=== PATIENT | male | born 1950 | race Caucasian/White ===

== ENCOUNTER 2016-11-21 08:54 | Emergency (ER) | payer OTHER ==
[2016-11-21 09:05] VITALS: BMI 30.7
--- NOTE | 2016-11-21 09:45 | PDOC ---
History of Present Illness - General Chief Complaint: Pain Stated Complaint: KNEES PAIN Time Seen by Provider: 11/21/16 09:16 Past History - Past Medical History Allergies/Adverse Reactions: Allergies Allergy/AdvReac Type Severity Reaction Status Date / Time No Known Allergies Allergy Verified 11/21/16 08:58 Anemia: Yes Cardiac Disorders: Yes (ISCHEMIC HEART DISEASE) Dialysis: Yes ([facility]) GI Disorders: Yes (DIVERTICULOSIS,GERD) HTN: Yes Hypercholesterolemia: Yes Psychiatric Problems: Yes (BIPOLAR, PTSD,DEPRESSIVE DISORDER) - Surgical History Appendectomy: Yes - Psycho/Social/Smoking Cessation Hx Suicidal Ideation: No Smoking History: Former smoker Have you smoked in the past 12 months: No Information on smoking cessation initiated: No *Physical Exam - Vital Signs Last Vital Signs Temp Pulse Resp BP Pulse Ox 97.6 F 70 19 150/80 97 11/21/16 08:59 11/21/16 08:59 11/21/16 08:59 11/21/16 08:59 11/21/16 08:59
--- NOTE | 2016-11-21 10:46 | PDOC ---
History of Present Illness - General History Source: Patient Exam Limitations: No Limitations <Jonn Herbert - Last Filed: 11/21/16 13:58> - General History Source: Patient Exam Limitations: No Limitations - History of Present Illness Initial Comments: 11/21/16 11:22 The patient is a 66 year old male with significant past medical history of PTSD , bipolar disorder, ESRD (on HD), HLD, and HTN who presents to the ED with unstable gait. Patient notes that he recently saw Dr. Kincaid and had no complaints. He reports that he developed unstable gait and feeling off balance over the last month and started using a walker to ambulate, and the past 3-4 days required use of a wheelchair. He notes that he is also experiencing LE pain at the hips, knees and ankles mostly ocassionally wihtout history of recent fall. Pt states he has a history of chronic lower back pain, but states the pain is mild and there has been no changes recently - denies any mumbness/ tingling, urinary/bowel incontinence. He notes that he had his HD Tuesday ( pt then states it might have been - that he doesn recall). Pts history seems to be consistent, but may be unreliable due to his psych history. He denies any recent trauma, leg injury or fall. He denies any fever, chills, nausea, vomiting, diarrhea, abdominal pain, blurry vision, headache. PCP - Dr. Kincaid <Monique Castellon - Last Filed: 11/21/16 14:35> - General Chief Complaint: Pain Stated Complaint: KNEES PAIN Time Seen by Provider: 11/21/16 09:16 Past History - Past Medical History Anemia: Yes Cardiac Disorders: Yes (ISCHEMIC HEART DISEASE) Dialysis: Yes ([facility], left arm fistula) GI Disorders: Yes (DIVERTICULOSIS,GERD) HTN: Yes Hypercholesterolemia: Yes Psychiatric Problems: Yes (BIPOLAR, PTSD,DEPRESSIVE DISORDER) - Surgical History Appendectomy: Yes - Psycho/Social/Smoking Cessation Hx Suicidal Ideation: No Smoking History: Former smoker Have you smoked in the past 12 months: No Information on smoking cessation initiated: No Substance Use Type: None <Jonn Herbert - Last Filed: 11/21/16 13:58> <Monique Castellon - Last Filed: 11/21/16 14:35> - Past Medical History Allergies/Adverse Reactions: Allergies Allergy/AdvReac Type Severity Reaction Status Date / Time No Known Allergies Allergy Verified 11/21/16 08:58 Home Medications: Ambulatory Orders Atorvastatin Ca [Lipitor] 10 mg PO HS 11/21/16 Calcium Acetate [Phoslo -] 667 mg PO TID 11/21/16 Cinacalcet HCl [Sensipar -] 30 mg PO DAILY 11/21/16 Clonazepam [KlonoPIN] 0.5 mg PO DAILY 11/21/16 Divalproex Sodium [Depakote] 250 mg PO BID 11/21/16 Folic Acid 1 mg PO DAILY 11/21/16 Hydroxyzine HCl [Atarax -] 25 mg PO DAILY 11/21/16 Metoprolol Succinate/Hctz [Dutoprol 100-12.5 mg Tablet] 12.5 mg PO BID 11/21/16 Olanzapine [Olanzapine Odt] 10 mg PO HS 11/21/16 Olanzapine [Zyprexa] 2.5 mg PO DAILY 11/21/16 Tamsulosin HCl [Flomax] 0.4 mg PO DAILY 11/21/16 Review of Systems - Review of Systems Able to Perform ROS?: Yes Comments:: 11/21/16 11:22 CONSTITUTIONAL: No reported: Fever, Chills, Diaphoresis, Generalized Weakness, Malaise, Loss of Appetite HEENT: No reported: Rhinorrhea, Nasal Congestion, Throat Pain, Throat Swelling, Difficulty Swallowing, Mouth Swelling, Ear Pain, Eye Pain, Visual Changes CARDIOVASCULAR: No reported: Chest Pain, Syncope, Palpitations, Irregular Heart Rate, Lightheadedness, Peripheral Edema RESPIRATORY: No reported: Cough, Shortness of Breath, SOB with Exertion, Orthopnea, Wheezing , Stridor, Hemoptysis GASTROINTESTINAL: No reported: Abdominal pain, Abdominal Distension, Nausea, Vomiting, Diarrhea, Constipation, Melena, Hematochezia GENITOURINARY: Reported: dysuria No reported:Frequency, Urgency, Hesitancy, Flank Pain, Genital Pain MUSCULOSKELETAL: Reported: bilateral LE pain No reported: Myalgia, Arthralgia, Joint Swelling, Back pain, Neck Pain SKIN: No reported: Rash, Itching, Pallor HEMATOLOGIC/IMMUNOLOGIC: No reported: Easy Bleeding, Easy Bruising, Lymphadenopathy, Frequent infections ENDOCRINE: No reported: Unexplained Weight Gain, Unexplained Weight Loss, Heat Intolerance , Cold Intolerance NEUROLOGIC: Reported: unsteady gait No reported: Headache, Focal Weakness, Paresthesias, Vertigo, Lightheadedness, Seizure, Mental Status Changes, Incontinence PSYCHIATRIC: No reported: Anxiety, Depression <Monique Castellon - Last Filed: 11/21/16 14:35> *Physical Exam - Vital Signs Last Vital Signs Temp Pulse Resp BP Pulse Ox 97.6 F 70 19 150/80 97 11/21/16 08:59 11/21/16 08:59 11/21/16 08:59 11/21/16 08:59 11/21/16 08:59 <Jonn Herbert - Last Filed: 11/21/16 13:58> - Vital Signs Last Vital Signs Temp Pulse Resp BP Pulse Ox 97.6 F 70 19 150/80 97 11/21/16 08:59 11/21/16 08:59 11/21/16 08:59 11/21/16 08:59 11/21/16 08:59 - Physical Exam Comments: 11/21/16 11:22 GENERAL: The patient is awake, alert, and oriented x 2 Nontoxic - in no acute distress. HEAD: Normocephalic, atraumatic. EYES: extraocular movements intact, sclera anicteric, conjunctiva clear. ENT: Normal voice, Moist mucous membranes. NECK: Normal range of motion, supple LUNGS: Breath sounds equal, clear to auscultation bilaterally. No wheezes, no rhonchi, no rales. HEART: Regular rate and rhythm, without murmur, rub or gallop. ABDOMEN: Soft, nontender, normoactive bowel sounds. No guarding, no rebound.No CVA tenderness EXTREMITIES: Normal range of motion of all joints without any pain, no edema, erythema, focal tenderness. +fistula on LUE. BACK: No focal tenderness in the cervical/throacic/lumbar back. NEUROLOGICAL: No facial assymetry, Normal speech, Strength symmetric in upper and lower extremities, finger to nose, rapid alternating movements, heel/toe symmetric and intact, sensation intact throughout. PSYCH: Normal mood, flat affect. SKIN: Warm, Dry, normal turgor <Monique Castellon - Last Filed: 11/21/16 14:35> Heart Score/ECG Review - ECG Impressions Comment:: 11/21/16 13:22 Twelve-lead EKG was performed and reviewed by me. There is normal sinus rhythm with a normal rate. rate of 71 right ventricular conduction delay no old ekgs for comparison <Jonn Herbert - Last Filed: 11/21/16 13:58> ED Treatment Course - LABORATORY CBC & Chemistry Diagram: 11/21/16 10:45 11/21/16 10:45 - RADIOLOGY Radiology Studies Ordered: Category Date Time Status HEAD CT WITHOUT CONTRAST [CT] Stat CT Scan 11/21/16 10:29 Ordered <Jonn Herbert - Last Filed: 11/21/16 13:58> - LABORATORY CBC & Chemistry Diagram: 11/21/16 10:45 11/21/16 10:45 - ADDITIONAL ORDERS Additional order review: 11/21/16 10:45 RBC 3.91 L MCV 93.9 MCHC 33.4 RDW 14.9 MPV 7.7 Neutrophils % Y Lymphocytes % Y <Monique Castellon - Last Filed: 11/21/16 14:35> Medical Decision Making - Medical Decision Making 11/21/16 10:32 66y M hx of PTSD, depression, from assisted living for evaluation of unstable gait. The patient states that for the past several weaks, he has been having a more unsteady gait. The pt also notes intermittent pain/discomfort to his lower extremities. THe pts exam is fairly unremarkable with intact normal stregnth, finger to nose, rapid alteranting movements, heel/toe. The pts gait is unsteady. No tenderness noted on palpation or on ROM of extremities. Unclear cause of the pts gait instability - will obtain head CT, lumbar CT (as pt has complained of senior living pain in the lower back, but no worsening of this) , will ck labs to r/o metabolic derangements. No focal tenderness to suggest any acute injury. will reassess A portion of this note was documented by scribe services under my direction. I have reviewed the details of the note, within reason, and agree with the documentation with the following case summary and management plan written by me 11/21/16 13:17 Spoke with the patients son Tan Dalton - states that the pts gait instability is secondary to his psych meds and the pt has been worked up by his PMD and neurologist - and they titrate his psych meds appropriatel to find a good balance between his psychological health and his ambulatory problems - and he often complains of some leg pain as well. The pt seems at his baseline currently. The son also states the pt should walk with a walker, but uses a cane occasionally when he think he can walk - but should be using a walker. The pts labs rviewed. K at 5.3 - will consult renal to see if the pt can defer dialysis until tuesday his next regularly scheduled dialysis. 11/21/16 13:55 case was discussed with dr. José, recommend kayexalate 30mg admission or emergent dialysis not needed as the pt is not flulid overloaded and otherwise asymtomatic. and d/c with regular dialysis on tuesday dr. prabhakar states he did have dialysis yesterday. return precautions were discussed I discussed the physical exam findings, ancillary test results and final diagnoses with the patient. I answered all of the patient's questions. The patient was satisfied with the care received and felt comfortable with the discharge plan and treatment plan. The patient will call their primary care physician within 24 hours to arrange follow-up and will return to the Emergency Department with any new, persistent or worsening symptoms. <Jonn Herbert - Last Filed: 11/21/16 13:58> - Medical Decision Making 11/21/16 10:22 A page was placed to Dr. Kincaid at his service. Awaiting a call back 11/21/16 11:00 Second page was placed to Dr. Kincaid at his service. Awaiting a call back 11/21/16 11:49 A third page was placed to Dr. Kincaid at his service. Awaiting a call back. 11/21/16 13:15 A call was placed to Dr. Darren Soriano at his service. Awaiting a call back from Dr. José who is electronic operator. 11/21/16 13:38 A call was placed to Dr. José. Awaiting a call back. 11/21/16 13:[address] José. <Monique Castellon - Last Filed: 11/21/16 14:35> *DC/Admit/Observation/Transfer - Discharge Dispostion Admit: No <Jonn Herbert - Last Filed: 11/21/16 13:58> <CandeMonique - Last Filed: 11/21/16 14:35> Diagnosis at time of Disposition: Leg pain, bilateral, ESRD (end stage renal disease) on dialysis - Discharge Dispostion Disposition: HOME Condition at time of disposition: Improved - Referrals Referrals: Tenisha Kicnaid MD [Primary Care Provider] - - Patient Instructions Printed Discharge Instructions: DI for Leg Pain Additional Instructions: Return to the emergency department immediately with ANY new, persistent or worsening symptoms. Adhere to your renal diet. You MUST call and follow up with your doctor tomorrow for further evaluation of your symptoms. Results were discussed with you. Please make sure your doctor reviews the results of your emergency evaluation. Print Language: SPANISH
[2016-11-21 11:12] LABS: MCH 31.3 pg (25.7-33.7); MCHC 33.4 g/dl (32.0-35.9); MEAN CELL VOLUME 93.9 fl (80-96); MEAN PLT VOLUME 7.7 fl (7.5-11.1); PLATELET COUNT 207 K/MM3 (134-434); RDW 14.9 % (11.9-15.9); WHITE BLOOD COUNT 6.3 K/mm3 (4.0-10.0)
[2016-11-21 11:38] LABS: ALBUMIN 3.8 g/dl (3.4-5.0); BILIRUBIN,TOTAL 0.5 mg/dL (0.2-1.0); MAGNESIUM 2.1 mg/dL (1.8-2.4); TOT PROT 7.2 g/dl (6.4-8.2)
[2016-11-21 11:46] LABS: CREATININE 9.2 mg/dL (0.7-1.3)
[2016-11-21 11:59] LABS: PLATELET ESTIMATE ADEQUATE (NORMAL)
[2016-11-21] MEDS ORDERED: SODIUM POLYSTYRENE SULFONATE 15 GM/60 ML BOTTLE PO ONE (13:54)
[2016-11-21] MEDS ORDERED: SODIUM POLYSTYRENE SULFONATE 15 GM/60 ML BOTTLE ONE (14:00)
[2016-11-21 16:05] VITALS: BP 136/79; PULSE 81; TEMP 98.1
--- NOTE | 2016-11-22 12:08 | EKG ---
Test Reason : Blood Pressure : / mmHG Vent. Rate : 071 BPM Atrial Rate : 071 BPM P-R Int : 174 ms QRS Dur : 122 ms QT Int : 416 ms P-R-T Axes : 036 015 043 degrees QTc Int : 452 ms NORMAL SINUS RHYTHM RSR' OR QR PATTERN IN V1 SUGGESTS RIGHT VENTRICULAR CONDUCTION DELAY BORDERLINE ECG NO PREVIOUS ECGS AVAILABLE Confirmed by ANDREW LEE MD ([id number]) on 11/22/2016 12:08:07 PM Referred By: Confirmed By:ANDREW LEE MD
== END 2016-11-21 16:06 | disposition home or self-care (01) ==
LOC: JERFT 08:54 → JER 08:54
DX: R26.81 Unsteadiness on feet (principal); I12.0 Hypertensive chronic kidney disease with stage 5 chronic kidney disease or end stage renal disease; N18.6 End stage renal disease; N17.8 Other acute kidney failure; Z99.2 Dependence on renal dialysis; F31.9 Bipolar disorder, unspecified; F43.10 Post-traumatic stress disorder, unspecified
CPT/HCPCS: 36415; 70450-TC; 71010-TC; 72131-TC; 80053; 83735; 84100; 85025; 93005; 93010; 99284-25